=== PATIENT | male | born 1945 | race Caucasian/White ===

== ENCOUNTER 2019-12-12 17:55 | Emergency (ER) | payer MEDICARE, BC ==
[2019-12-12] MEDS ORDERED: Acetaminophen/HYDROcodone 325-10 MG Tab PO ONE (17:56)
[2019-12-12] MEDS ORDERED: Acetaminophen/HYDROcodone 325-10 MG Tab ONE (18:17)
--- NOTE | 2019-12-12 18:19 | CR ---
PROCEDURE INFORMATION: Exam: XR Right Ribs Exam date and time: 12/12/2019 6:05 PM Age: 74 years old Clinical indication: Other: Fall, low right rib pain; Additional info: RT rib pain, fell on a pontoon TECHNIQUE: Imaging protocol: XR Right ribs. Views: 2 views. COMPARISON: No relevant prior studies available. 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 Fractures noted in the posterior lateral right 5th and 7th ribs and possibly also the 6th rib. Lungs: Minimal basilar atelectasis. Lungs are otherwise clear. Pleural space: No pneumothorax. Heart/Mediastinum: Heart size normal. Soft tissues: Normal. IMPRESSION: 1. Fractures noted in the posterior lateral right 5th and 7th ribs and possibly also the 6th rib. 2. No pneumothorax. 3. Minimal basilar atelectasis. 4. 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
[2019-12-12 18:24] VITALS: BP 110/75; PULSE 68
--- NOTE | 2019-12-12 18:29 | EDM.PDOC ---
Scribed by Akiko Valentine 12/12/19 6220 for Adolph Masters MD ED HPI GENERAL MEDICAL PROBLEM - General Chief Complaint: Chest Pain Stated Complaint: RIGHT SIDE OF THE RIBS, FELL OF A PONTOON Time Seen by Provider: 12/12/19 18:08 Source of Information: Reports: Patient, RN, RN Notes Reviewed History Limitations: Reports: No Limitations - History of Present Illness INITIAL COMMENTS - FREE TEXT/NARRATIVE: Patient presents to ER ambulating into ED with complaint of hitting right side of rib on pontoon while putting tarp on it. Patient denies loss of consciousness , but got wind knocked out of him. Onset: Today Duration: Getting Worse Location: Reports: Chest (ribs) Quality: Reports: Ache Severity: Moderate Improves with: Reports: None Worsens with: Reports: None Associated Symptoms: Reports: No Other Symptoms Right Middle Chest Pain Score (Numeric/FACES): 5 - Related Data Allergies Allergy/AdvReac Type Severity Reaction Status Date / Time bee venom protein (honey bee) Allergy Airway Verified 03/30/17 09:38 Tightness Home Meds: Home Meds Omeprazole 40 mg PO DAILY 03/19/17 [History] Past Medical History HEENT History: Reports: Impaired Vision Cardiovascular History: Reports: None Respiratory History: Reports: None - Past Surgical History GI Surgical History: Reports: Colon Male Surgical History: Reports: Other (See Below) Other Male Surgeries/Procedures: prostate surgery Musculoskeletal Surgical History: Reports: Other (See Below) Other Musculoskeletal Surgeries/Procedures:: bilateral foot surgery Social & Family History - Caffeine Use Caffeine Use: Reports: None ED ROS GENERAL - Review of Systems Review Of Systems: Comprehensive ROS is negative, except as noted in HPI. ED EXAM, GENERAL - Physical Exam Exam: See Below Exam Limited By: No Limitations General Appearance: Alert, WD/WN, No Apparent Distress Eye Exam: Bilateral Eye: Normal Inspection Head: Atraumatic, Normocephalic Neck: Normal Inspection, Supple, Non-Tender, Full Range of Motion Respiratory/Chest: No Respiratory Distress, Lungs Clear, Normal Breath Sounds, Splinting (slight), Other (tender overlying Rt posterior and lateral ribs 5-7, no visible bruising, swelling, or deformity.). No: Crackles, Rales, Rhonchi, Wheezing Cardiovascular: Normal Peripheral Pulses, Regular Rate, Rhythm GI/Abdominal: Normal Bowel Sounds, Soft, Non-Tender Back Exam: Normal Inspection Extremities: Normal Inspection Neurological: Alert, Oriented, No Motor/Sensory Deficits Psychiatric: Normal Mood Skin Exam: Warm, Dry, Intact, Normal Color Course - Vital Signs Last Recorded V/S: Last Vital Signs Temp 97.2 F 12/12/19 18:20 Pulse 68 12/12/19 18:20 Resp 18 12/12/19 18:20 BP 110/75 12/12/19 18:20 Pulse Ox 100 12/12/19 18:20 - Orders/Labs/Meds Orders: Active Orders 24 hr Category Date Time Status RT Incentive Spirometry [RC] ASDIRECTED Care 12/12/19 18:22 Active Meds: Medications Discontinued Medications Generic Name Dose Route Start Last Admin Trade Name Freq PRN Reason Stop Dose Admin Hydrocodone Bitart/Acetaminophen Confirm 12/12/19 18:17 [place] 325-10 Mg Administered 12/12/19 18:18 Dose 4 tab .ROUTE .STK-MED ONE - Radiology Interpretation Free Text/Narrative:: Chest with right side: Fractures noted in the posterior lateral right 5th and 7th ribs and possibly also the the 6th rib. No pneumothorax. Minimal basilar atelectasis. Moderately DJD at the glenohumeral joints. See rad report. Departure - Departure Time of Disposition: 18:27 Disposition: Home, Self-Care 01 Condition: Good Clinical Impression: Multiple fractures of ribs Qualifiers: Encounter type: initial encounter Fracture type: closed Laterality: right Qualified Code(s): S22.41XA - Multiple fractures of ribs, right side, initial encounter for closed fracture - Discharge Information *PRESCRIPTION DRUG MONITORING PROGRAM REVIEWED*: Not Applicable *COPY OF PRESCRIPTION DRUG MONITORING REPORT IN PATIENT KAREN: Not Applicable Instructions: Rib Fracture Forms: ED Department Discharge Additional Instructions: Rx: Hydrocodone APAP 5mg/325mg Use Incentive Spirometer every hour while awake. Follow up in clinic if not improving as expected. Return to ER if you develop a cough or fever. Sepsis Event Note - Focused Exam Vital Signs: Vital Signs Temp Pulse Resp BP Pulse Ox 12/12/19 18:20 97.2 F 68 18 110/75 100 Date Exam was Performed: 12/12/19 Time Exam was Performed: 18:26 - My Orders Last 24 Hours: My Active Orders 12/12/19 18:22 RT Incentive Spirometry [RC] ASDIRECTED - Assessment/Plan Last 24 Hours: My Active Orders 12/12/19 18:22 RT Incentive Spirometry [RC] ASDIRECTED I have read and agree with the documentation that has been completed regarding this visit. By signing this record, I attest that the documentation was completed in my physical presence and is an accurate record of the encounter.
== END 2019-12-12 18:31 | disposition home or self-care (01) ==
LOC: DL.ED 17:55
DX: S22.41XA Multiple fractures of ribs, right side, initial encounter for closed fracture (principal); Z91.030 Bee allergy status; Z79.899 Other long term (current) drug therapy; W22.8XXA Striking against or struck by other objects, initial encounter
CPT/HCPCS: 71100; 94010; 99283; A9270